=== PATIENT | male | born 1940 | race Caucasian/White ===

== ENCOUNTER 2019-12-19 13:02 | Emergency (ER) | payer OTHER ==
[2019-12-20 14:24] LABS: SARS-CoV-2 MS2 Positive; SARS-CoV-2 N Gene Negative; SARS-CoV-2 S Gene Negative; SARS-CoV-2 by NAA Not Detected (NotDetected); SARS-CoV-2 orf1ab Negative
== END 2019-12-19 13:36 | disposition home or self-care (01) ==
LOC: ERS 13:02
DX: R19.7 Diarrhea, unspecified (principal); I10 Essential (primary) hypertension; Z20.828 Contact with and (suspected) exposure to other viral communicable diseases
CPT/HCPCS: 87635; 99284; U0003